=== PATIENT | female | born 1960 | race Caucasian/White ===

== ENCOUNTER 2023-10-04 15:58 | Inpatient (IN) ==
[2023-10-04] MEDS: methylPREDNISolone SOD SUCC 125 MG/2 ML VIAL IV ONE (16:17)
[2023-10-04] MEDS: ALBUTEROL SULFATE 2.5 MG/3 ML NEBULIZER NEB ONE (16:30)
[2023-10-04] MEDS: IPRATROPIUM/ALBUTEROL 3 ML AMPUL.NEB NEB ONE ×2 (16:30→17:15)
[2023-10-04 16:53] LABS: Basophils # (Auto) 0 K/mcL (0.00-0.30); Basophils % (Auto) 0 % (0.0-2.0); Eosinophils # (Auto) 0 K/mcL (0.00-0.70); Eosinophils % (Auto) 0 % (0.0-7.0); Hematocrit 37.5 % (34.1-44.9); Hemoglobin 12.1 g/dL (11.2-15.7); Lymphocytes # (Auto) 0.56 K/mcL (1.50-4.80); Lymphocytes % (Auto) 10.4 % (15.5-49.0); Mean Cell Volume 86.4 fL (80.0-100.0); Mean Corpuscular HGB Conc 32.3 g/dL (31.0-36.0); Mean Platelet Volume 10.6 fL (8.8-12.5); Monocytes # (Auto) 0.37 K/mcL (0.10-0.90); Monocytes % (Auto) 6.9 % (1.0-12.0); Neutrophils % (Auto) 82.3 % (38.0-78.0); Platelet Count 176 K/mcL (140-440); RBC 4.34 M/mcL (3.59-5.38); Red Cell Distribution Width 15.6 % (11.5-14.5); WBC 5.4 K/mcL (4.5-11.0)
[2023-10-04 17:12] LABS: ALT/SGPT 12 U/L (<40); AST/SGOT 41 U/L (<32); Albumin 3.6 gm/dL (3.2-5.2); Albumin/Globulin Ratio 1.3 (1.0-2.3); Alkaline Phosphatase 125 U/L (39-117); Bilirubin,Total 0.4 mg/dL (0.1-1.0); Blood Urea Nitrogen 23 mg/dL (8-23); Calcium 9.1 mg/dL (8.6-10.4); Carbon Dioxide 24 mmol/L (22-30); Chloride 95 mmol/L (96-108); Globulin 2.8 gm/dL (2.2-3.7); Glomerular Filtration Rate 67; Glucose 100 mg/dL (70-105)
[2023-10-04] MEDS: ACETAMINOPHEN 1,000 MG/100 ML BAG IV PRN (17:43)
[2023-10-04] MEDS: cefTRIAXone 2 GM in DEXTROSE 5% IN WATER 50 ML IV ONE (18:32)
[2023-10-04] MEDS: AZITHROMYCIN 500 MG in DEXTROSE 5% IN WATER 250 ML IV ONE (19:08)
[2023-10-04 20:47] LABS: Appearance,Urine Clear (Clear); Bacteria,Urine 0 /hpf (0); Bilirubin,Urine Negative (Negative); Color,Urine Yellow; Culture Indicated,Urine No; Glucose,Urine (UA) Negative (Negative); Ketones,Urine Negative (Negative); Leukocyte Esterase,Urine Negative /uL (Negative); Nitrate,Urine Negative (Negative); PH,Urine 5.5 (5.0-9.0); Protein,Urine Negative (Negative); Urine Blood Negative ery/mcL (Negative); Urine RBC 0 /hpf (0-3); Urine Squamous Epithelial Cell 0 /hpf (0-4); Urine WBC 0 /hpf (0-4); Urobilinogen,Urine Normal
[2023-10-04] MEDS ORDERED: POLYETHYLENE GLYCOL 3350 17 GM PACKET PO PRN (21:29)
[2023-10-04] MEDS ORDERED: ACETAMINOPHEN 325 MG TABLET PO PRN (21:29)
[2023-10-04] MEDS ORDERED: POTASSIUM CHLORIDE 20 MEQ TABLET PO PRN ×2 (21:29)
[2023-10-04] MEDS ORDERED: MAGNESIUM SULFATE 2 GM/50 ML BAG IV PRN (21:29)
[2023-10-04] MEDS ORDERED: SENNOSIDES 1 TABLET PO PRN (21:29)
[2023-10-04] MEDS ORDERED: POTASSIUM CHLORIDE 40 MEQ in DEXTROSE 5% IN WATER 500 ML IV PRN (21:29)
[2023-10-04] MEDS ORDERED: IPRATROPIUM/ALBUTEROL 3 ML AMPUL.NEB NEB PRN (21:29)
[2023-10-04] MEDS: methylPREDNISolone SOD SUCC 40 MG/ML VIAL IV SCH (23:09)
[2023-10-04] MEDS: cefTRIAXone 1 GM VIAL IV SCH (23:11)
[2023-10-04] MEDS: DOCUSATE SODIUM 100 MG CAPSULE PO SCH (23:11)
[2023-10-04] MEDS: 0.9 % SODIUM CHLORIDE 10 ML SYRINGE IV SCH (23:11)
[2023-10-04] MEDS: AZITHROMYCIN 500 MG in DEXTROSE 5% IN WATER 250 ML IV SCH (23:11)
[2023-10-04] MEDS: REMDESIVIR 200 MG in 0.9 % SODIUM CHLORIDE 250 ML IV ONE (23:12)
[2023-10-05] MEDS: REMDESIVIR 100 MG in 0.9 % SODIUM CHLORIDE 250 ML IV SCH ×2 (00:17→13:25)
[2023-10-05] MEDS: IPRATROPIUM/ALBUTEROL 3 ML AMPUL.NEB NEB SCH (00:59)
[2023-10-05 06:18] LABS: Basophils # (Auto) 0.01 K/mcL (0.00-0.30); Basophils % (Auto) 0.5 % (0.0-2.0); Eosinophils # (Auto) 0 K/mcL (0.00-0.70); Eosinophils % (Auto) 0 % (0.0-7.0); Hematocrit 38.2 % (34.1-44.9); Hemoglobin 12.4 g/dL (11.2-15.7); Lymphocytes # (Auto) 0.35 K/mcL (1.50-4.80); Lymphocytes % (Auto) 17.1 % (15.5-49.0); Mean Cell Volume 85.7 fL (80.0-100.0); Mean Corpuscular HGB Conc 32.5 g/dL (31.0-36.0); Mean Platelet Volume 10.4 fL (8.8-12.5); Monocytes # (Auto) 0.11 K/mcL (0.10-0.90); Monocytes % (Auto) 5.4 % (1.0-12.0); Platelet Count 158 K/mcL (140-440); RBC 4.46 M/mcL (3.59-5.38); Red Cell Distribution Width 15.6 % (11.5-14.5); WBC 2.1 K/mcL (4.5-11.0)
[2023-10-05 06:55] LABS: ALT/SGPT 8 U/L (<40); AST/SGOT 36 U/L (<32); Albumin 3.3 gm/dL (3.2-5.2); Albumin/Globulin Ratio 1.3 (1.0-2.3); Alkaline Phosphatase 113 U/L (39-117); Bilirubin,Direct < 0.2 mg/dL (0-0.3); Bilirubin,Total 0.3 mg/dL (0.1-1.0); Blood Urea Nitrogen 22 mg/dL (8-23); Calcium 8.8 mg/dL (8.6-10.4); Carbon Dioxide 25 mmol/L (22-30); Chloride 99 mmol/L (96-108); Globulin 2.6 gm/dL (2.2-3.7); Glomerular Filtration Rate 91; Glucose 158 mg/dL (70-105); Lactate Dehydrogenase 382 U/L (135-225); Phosphorous 3.1 mg/dL (2.5-4.5); Triglycerides 164 mg/dL (<150); Uric Acid 8.5 mg/dL (2.5-8.0)
[2023-10-05] MEDS: cefTRIAXone 1 GM VIAL IV SCH (08:41)
[2023-10-05] MEDS: ENOXAPARIN 40 MG/0.4 ML SYRINGE SQ SCH (08:41)
[2023-10-05] MEDS: 0.9 % SODIUM CHLORIDE 500 ML IV ONE (10:34)
[2023-10-05] MEDS: AZITHROMYCIN 500 MG in DEXTROSE 5% IN WATER 250 ML IV SCH (10:34)
[2023-10-05] MEDS: HYDROcodone/APAP 5/325MG TABLET PO PRN (15:06)
[2023-10-05] MEDS: BACLOFEN 10 MG TABLET PO PRN (15:14)
[2023-10-05] MEDS: rOPINIRole 1 MG TABLET PO SCH (15:14)
[2023-10-05] MEDS: Diclofenac Sodium [Arthritis Pain (Diclofenac)] Gel TOPICAL SCH (17:16)
[2023-10-05] MEDS: MYCOPHENOLATE 250 MG CAPSULE PO SCH (20:48)
[2023-10-05] MEDS: OMEPRAZOLE 20 MG CAPSULE PO SCH (20:48)
[2023-10-05] MEDS: AMITRIPTYLINE 25 MG TABLET PO SCH (20:49)
[2023-10-05] MEDS: methylPREDNISolone SOD SUCC 40 MG/ML VIAL IV SCH (20:50)
[2023-10-06] MEDS: oxyCODONE IR 5 MG TABLET PO PRN (00:47)
[2023-10-06 06:51] LABS: Basophils # (Auto) 0 K/mcL (0.00-0.30); Basophils % (Auto) 0 % (0.0-2.0); Eosinophils # (Auto) 0 K/mcL (0.00-0.70); Eosinophils % (Auto) 0 % (0.0-7.0); Hemoglobin 12.1 g/dL (11.2-15.7); Lymphocytes # (Auto) 0.31 K/mcL (1.50-4.80); Mean Cell Volume 87.2 fL (80.0-100.0); Mean Corpuscular HGB Conc 31.8 g/dL (31.0-36.0); Mean Platelet Volume 10.4 fL (8.8-12.5); Monocytes # (Auto) 0.29 K/mcL (0.10-0.90); Monocytes % (Auto) 5.6 % (1.0-12.0); Neutrophils % (Auto) 88.2 % (38.0-78.0); Platelet Count 187 K/mcL (140-440); RBC 4.36 M/mcL (3.59-5.38); Red Cell Distribution Width 15.6 % (11.5-14.5); WBC 5.2 K/mcL (4.5-11.0)
[2023-10-06 07:21] LABS: ALT/SGPT 7 U/L (<40); AST/SGOT 30 U/L (<32); Albumin 3.2 gm/dL (3.2-5.2); Albumin/Globulin Ratio 1.3 (1.0-2.3); Alkaline Phosphatase 101 U/L (39-117); Bilirubin,Direct < 0.2 mg/dL (0-0.3); Bilirubin,Total < 0.2 mg/dL (0.1-1.0); Blood Urea Nitrogen 16 mg/dL (8-23); Calcium 9.1 mg/dL (8.6-10.4); Carbon Dioxide 28 mmol/L (22-30); Chloride 101 mmol/L (96-108); Globulin 2.4 gm/dL (2.2-3.7); Glomerular Filtration Rate 96; Glucose 148 mg/dL (70-105); Lactate Dehydrogenase 342 U/L (135-225); Triglycerides 135 mg/dL (<150); Uric Acid 6.3 mg/dL (2.5-8.0)
[2023-10-06] MEDS ORDERED: MYCOPHENOLATE MOFETIL 500 MG PO SCH (09:00)
[2023-10-06] MEDS: MODAFINIL 200 MG TABLET PO SCH (09:54)
[2023-10-06] MEDS: AZITHROMYCIN 250 MG TABLET PO SCH (10:41)
[2023-10-06] MEDS: predniSONE 20 MG TABLET PO SCH (20:17)
[2023-10-06] MEDS: ONDANSETRON 4 MG/2 ML VIAL IV PRN (22:30)
== END 2023-10-07 13:50 | disposition home or self-care (01) | DRG 871 ==
LOC: ED 15:58 → MEDSUR 21:25
PROVIDERS: ADMIT Internal Medicine; ATTEND Internal Medicine